=== PATIENT | female | born 1945 | race Two or more races ===

== ENCOUNTER 2018-12-03 13:46 | Inpatient (IN) | payer OTHER ==
[~2018-12-03] VITALS: Ht 157.5 cm; Wt 95.7 kg
[2018-12-16] MEDS ORDERED: COZAAR100 MG PO (12:27)
[2018-12-16] MEDS ORDERED: [UNRECOGNIZED DRUG - OTHER] PO (12:28)
[2018-12-16] MEDS ORDERED: ZOCOR40 MG PO (12:29)
[2018-12-16] MEDS ORDERED: GLIPIZIDE10 MG PO (12:29)
[2018-12-23] MEDS ORDERED: LEVOTHYROXINE112 MCG PO (08:29)
[2018-12-23] MEDS ORDERED: SIMVASTATIN40 MG PO (08:31)
[2018-12-23] MEDS ORDERED: LOSARTAN-HCTZ1 EAC2 PO (08:31)
[2018-12-27] MEDS ORDERED: INTESTINEX680 M1 PO (09:57)
[2018-12-27] MEDS ORDERED: OMEPRAZOLE20 MG PO (09:57)
[2018-12-27] MEDS ORDERED: PERCOCET 5-3251 EACH PO (09:57)
== END 2018-12-27 10:52 | disposition home or self-care (01) | DRG 334 ==
LOC: O/R 12-23 05:35 → SURG 12-23 05:35 → SURH 12-23 09:45 → SURG 12-23 13:10
PROVIDERS: ADMIT Surgery
PROC: 0DJD8ZZ Inspection of Lower Intestinal Tract, Via Natural or Artificial Opening Endoscopic (ICD-10-PCS; 2018-12-23)
PROC: 4A033R1 Measurement of Arterial Saturation, Peripheral, Percutaneous Approach (ICD-10-PCS; 2018-12-23)
PROC: 0DTP4ZZ Resection of Rectum, Percutaneous Endoscopic Approach (ICD-10-PCS; principal; 2018-12-23 09:45)
DX: K57.32 Diverticulitis of large intestine without perforation or abscess without bleeding (principal); I11.9 Hypertensive heart disease without heart failure; E03.8 Other specified hypothyroidism; G47.33 Obstructive sleep apnea (adult) (pediatric); E66.01 Morbid (severe) obesity due to excess calories

== ENCOUNTER 2020-01-04 09:27 | Day surgery (SDC) | payer OTHER ==
[~2020-01-04 09:27] MED LIST: COZAAR100 MG PO; GLIPIZIDE10 MG PO; INTESTINEX680 M1 PO; LEVOTHYROXINE112 MCG PO; LOSARTAN-HCTZ1 EAC2 PO; OMEPRAZOLE20 MG PO; PERCOCET 5-3251 EACH PO; SIMVASTATIN40 MG PO; ZOCOR40 MG PO; [UNRECOGNIZED DRUG - OTHER] PO
== END 2020-01-04 15:00 | disposition home or self-care (01) ==
LOC: AMB-ENDOS 09:27 → ADM 14:45 → AMB-ENDOS 15:00
PROVIDERS: ATTEND Surgery
DX: K62.89 Other specified diseases of anus and rectum (principal); K64.0 First degree hemorrhoids